=== PATIENT | female | born 1980 | race Caucasian/White ===

== ENCOUNTER 2017-01-10 13:28 | Emergency (ER) | payer MEDICAID ==
[~2017-01-10 13:28] MED LIST: CELEXA40 MG PO; MOTRIN-DPS800 MG PO; RESTORIL DPS30 MG PO; TYLENOL325 MG PO; XANAX0.5 MG PO
--- NOTE | 2017-01-13 12:11 | ER ---
ADMIT: 01/10/2017 RM/LOC: ER [facility] MR#: [id number] [address] [address] [place] [address] Emergency Room Report SEX: F AGE: 36 : 1980 DATE: 01/10/2017 This 36-year-old comes with cough, congestion, headache, and sore throat. Rapid strep is negative. Influenza is negative. The patient diagnosed with viral syndrome. See T-sheet for remainder of history and physical. Kishore Dewitt MD/ staci JOB #: [id number] CC: Kishore Dewitt MD, Attending Physician Anuj Acevedo MD, Family Physician
== END 2017-01-10 14:36 | disposition home or self-care (01) ==
LOC: ER 13:28
DX: B34.9 Viral infection, unspecified (principal); F17.200 Nicotine dependence, unspecified, uncomplicated; Z90.710 Acquired absence of both cervix and uterus

== ENCOUNTER 2017-01-11 01:44 | Emergency (ER) | payer MEDICAID ==
--- NOTE | 2017-01-11 02:41 | ER ---
ADMIT: 01/11/2017 RM/LOC: ER [facility] MR#: [id number] [address] [address] [place] [address] Emergency Room Report SEX: F AGE: 36 : 1980 DATE: 01/11/2017 SUBJECTIVE: The patient is a 36-year-old female with a past medical history of anxiety and asthma and recent upper respiratory tract infection for the last 3 days, who came to the ER for same complaint. The patient has been seen the previous day in the ER for same complaint. The patient complains of cough, sore throat, runny nose, and losing the voice. The patient states she had these symptoms for 3 days. Yesterday, the patient was tested for flu and strep which were both negative, and the patient was discharged home with diagnosis of URI, possible viral. PHYSICAL EXAMINATION: GENERAL: The patient was afebrile in the ER, in no respiratory distress, O2 saturation on room air was good at 98% to 99%. The patient looked anxious. Trachea was midline. The patient had erythema in the oropharynx without exudate. The patient had mild swelling of the pharyngeal tonsils bilaterally. The patient had no drooling and no stridor. LUNGS: Clear bilaterally. HEART: Normal heart sounds. ABDOMEN: Soft. The rest of the physical exam is noncontributory. ASSESSMENT AND PLAN: Considering the patient's presentation and physical examination, URI, acute laryngitis are at the top of differentials, possibly because of viral causes. The patient was given corticosteroid IM. The patient also was advised on voice rest, rehydrate as needed, and make hospital environment more humid by humidifier, and follow up with the primary care doctor if the hoarseness and change in the voice did not resolve in 1 to 2 weeks. The patient is stable to be discharged to home, to be followed by the primary care physician as needed. Slava Coleman MD/ staci JOB #: [id number] CC: Slava Coleman MD, Attending Physician Anuj Acevedo MD, Family Physician
== END 2017-01-11 02:35 | disposition home or self-care (01) ==
LOC: ER 01:44
DX: J04.0 Acute laryngitis (principal); J06.9 Acute upper respiratory infection, unspecified; F17.210 Nicotine dependence, cigarettes, uncomplicated; F41.9 Anxiety disorder, unspecified; Z88.1 Allergy status to other antibiotic agents; Z79.899 Other long term (current) drug therapy

== ENCOUNTER 2017-01-23 12:13 | Emergency (ER) | payer MEDICAID ==
--- NOTE | 2017-01-31 14:33 | ER ---
ADMIT: 01/23/2017 RM/LOC: ER [facility] MR#: [id number] [address] [place] [address] Emergency Room Report SEX: F AGE: 36 : 1980 DATE: 01/23/2017 ADDENDUM: This patient comes to the ER because she is having severe abdominal pain. She has had abdominal pain for the last month on and off, but today came on suddenly and it is worse than it has ever been. It is on the right upper quadrant. Ultrasound was normal. Her blood work was normal. She was given morphine which did make her feel better. Her CBC and CMP were also normal. I wrote a prescription for Zantac, tramadol, and Zofran and she is to follow up with her primary if she is not feeling better. Please see my T- sheet. ISRRAEL Villalobos / Selwyn Junior MD / ronakl JOB #: [id number] CC: Selwyn Junior MD, Attending Physician UNKNOWN, Family Physician
== END 2017-01-23 16:15 | disposition home or self-care (01) ==
LOC: ER 12:13
DX: R10.13 Epigastric pain (principal); J45.909 Unspecified asthma, uncomplicated; F41.9 Anxiety disorder, unspecified; F17.210 Nicotine dependence, cigarettes, uncomplicated; Z88.8 Allergy status to other drugs, medicaments and biological substances; Z79.899 Other long term (current) drug therapy

== ENCOUNTER 2017-01-29 22:33 | Emergency (ER) | payer MEDICAID ==
--- NOTE | 2017-01-30 06:13 | ER ---
ADMIT: 01/29/2017 RM/LOC: ER [facility] MR#: [id number] [address] [place] [address] Emergency Room Report SEX: F AGE: 36 : 1980 DATE: 01/29/2017 HISTORY OF PRESENT ILLNESS: The patient is a 36-year-old female with past medical history of asthma, anxiety, and depression, came to the ER with right upper quadrant pain. She states she had the pain on and off for 1 month. The patient also complains of nausea and one episode of vomiting today. The pain is sharp, increases with palpation of right upper quadrant and is moderate in severity. PHYSICAL EXAMINATION: GENERAL: The patient was in nhml-in-ieootvus distress, lying in bed. VITAL SIGNS: Normal, except for the systolic blood pressure of 95, which per patient was her baseline. HEAD AND NECK: Noncontributory, bilateral equal breath sounds. HEART: Normal heart sounds. ABDOMEN: Mild right upper quadrant tenderness and mild epigastric tenderness. There is no rebound or guarding. No CVA tenderness. The rest of the physical exam is noncontributory. The patient received the Zofran and also GI cocktail, which mildly decreased the pain. Pain was controlled. Lipase level was 169 with AST of 89, ALT of 21 with alkaline phosphatase of 103. White BC was 7.9 with hemoglobin of 12.6 and platelet of 254,000. Urine test was negative. Right upper quadrant ultrasound was negative for cholecystitis or gallstone. CT of the abdomen and pelvis was suggestive of gallbladder sludge and small free-fluid in abdomen. PLAN: Pain was effectively controlled, the patient was discharged to home with return precautions. Follow up with the primary doctor. If the pain returns, there could be need to be followed up by General Surgery per the primary physician's discretion. The patient was discharged to home. Slava Coleman MD/ staci JOB #: [id number] CC: Slava Coleman MD, Attending Physician
--- NOTE | 2017-01-30 15:10 | NUR ---
Pt triggered as a high ED user. Called and spoke with pt. Pt plans to establish care with Dr. Hinkle at [facility]. Pt has the contact information. Pt was able to get her discharge medications. Deny any needs at this time.
== END 2017-01-30 02:07 | disposition home or self-care (01) ==
LOC: ER 22:33
DX: K83.8 Other specified diseases of biliary tract (principal); J45.909 Unspecified asthma, uncomplicated; F41.9 Anxiety disorder, unspecified; F17.210 Nicotine dependence, cigarettes, uncomplicated; Z88.8 Allergy status to other drugs, medicaments and biological substances; Z79.899 Other long term (current) drug therapy